=== PATIENT | male | born 1950 ===

== ENCOUNTER 2016-07-29 08:26 | Emergency (ER) | payer MEDICARE ==
[2016-07-29 08:26] VITALS: BMI 28.4
[2016-07-29 08:42] VITALS: TEMP 98.5
[2016-07-29 09:37] LABS: BASO % 0.3 % (0.0-2.0); EOS # 0.1 K/uL (0.0-0.7); EOS % 0.5 % (0.0-4.0); HEMATOCRIT 45.7 % (35.0-51.0); LYMPH # 1.3 K/uL (1.0-4.3); LYMPH % 10.8 % (20.0-40.0); MEAN CELL VOLUME 88.1 fL (80.0-94.0); MEAN CORPUSCULAR HGB CONC 32.9 g/dL (33.0-37.0); MEAN PLATELET VOLUME 8.6 fL (7.2-11.7); MONO # 0.9 K/uL (0.0-0.8); MONO % 7.5 % (0.0-10.0); NRBC % 0.3 % (0.0-2.0); RED CELL DISTRIBUTION WIDTH 13.4 % (11.5-14.5); WHITE BLOOD COUNT 12.5 K/uL (4.8-10.8)
[2016-07-29 09:45] LABS: CHLORIDE 98 mmol/L (98-107); SODIUM 137 mmol/L (132-148)
[2016-07-29 09:47] LABS: GFR AFRICAN-AMERICAN > 60
[2016-07-29 09:48] LABS: ALB/GLOB RATIO 1.2 (1.0-2.1); ALKALINE PHOSPHATASE 49 U/L (38-126); ALT/SGPT 18 U/L (21-72); AST/SGOT 23 U/L (17-59); BILIRUBIN,TOTAL 0.7 mg/dL (0.2-1.3); BLOOD UREA NITROGEN 18 mg/dL (9-20); CARBON DIOXIDE 24 mmol/L (22-30); GLUCOSE,RANDOM 193 mg/dL (75-110); TOTAL PROTEIN 7.5 g/dL (6.3-8.3)
[2016-07-29 09:49] LABS: CALCIUM 8.6 mg/dl (8.6-10.4)
--- NOTE | 2016-07-29 10:01 | C.PDOC ---
History Of Present Illness 66 y/o male presents to the ED with complains of right upper chest, neck and back pain since waking up this morning after sleeping 24 hours. Pain is sharp and constant, worse with deep breaths and movement. He denies cough, fever, SOB , palpitations, falls/injuries, rashes. Time Seen by Provider: 07/29/16 09:12 Chief Complaint (Nursing): Chest Pain History Per: Patient History/Exam Limitations: no limitations Onset/Duration Of Symptoms: Hrs Current Symptoms Are (Timing): Still Present Severity: Moderate Quality: Sharp Exacerbating Factors: Movement, Deep Breathing Alleviating Factors: None Past Medical History Reviewed: Historical Data, Nursing Documentation, Vital Signs Vital Signs: Last Vital Signs Temp 98.5 F 07/29/16 08:40 Pulse 75 07/29/16 12:39 Resp 20 07/29/16 12:39 BP 161/83 H 07/29/16 12:39 Pulse Ox 93 L 07/29/16 14:40 - Medical History PMH: Anxiety, Arthritis, Back Problems, CVA, Depression, Diabetes, HTN, Hypercholesterolemia, Sleep Apnea (DOES NOT USE C PAP) - [facility] Procedures ENDO EXCISION/DEST OF LESION OR TISSUE OF STOMACH (12/28/14) Family History: States: No Known Family Hx - Social History Hx Tobacco Use: No Hx Alcohol Use: No Hx Substance Use: No - Immunization History Hx Tetanus Toxoid Vaccination: No Hx Influenza Vaccination: No Hx Pneumococcal Vaccination: No Review Of Systems Except As Marked, All Systems Reviewed And Found Negative. Constitutional: Negative for: Fever Cardiovascular: Positive for: Chest Pain. Negative for: Palpitations Respiratory: Negative for: Cough, Shortness of Breath Gastrointestinal: Negative for: Nausea, Vomiting, Abdominal Pain, Diarrhea Musculoskeletal: Positive for: Back Pain, Other (right upper chest and neck pain ) Physical Exam - Physical Exam Appears: Well, Non-toxic, No Acute Distress Skin: Warm, Dry, No Rash Head: Atraumatic, Normacephalic Eye(s): bilateral: Normal Inspection Oral Mucosa: Moist Neck: Normal, Normal ROM, No Midline Cervical Tenderness, Paracervical Tenderness (right trapezius TTP), No Step Off Deformity, Supple Chest: Symmetrical, Tenderness (right upper chest, right supraclavicular area with mild area swelling, no crepitus/fluctuance/induration/erythema) Cardiovascular: Rhythm Regular, No Murmur Respiratory: Normal Breath Sounds (equal breath sounds bilaterally), No Accessory Muscle Use, No Rales, No Rhonchi, No Wheezing Gastrointestinal/Abdominal: Normal Exam, Bowel Sounds, Soft, No Tenderness Extremity: Bilateral: Atraumatic Neurological/Psych: Oriented x3 ED Course And Treatment - Laboratory Results Result Diagrams: 07/29/16 09:33 07/29/16 09:33 ECG: Interpreted By Me, Viewed By Me (NSR 83 bpm, normal axis, no acute ST/T wave changes) ECG Rhythm: Sinus Rhythm ECG Interpretation: Normal O2 Sat by Pulse Oximetry: 93 (on room air) Pulse Ox Interpretation: Normal Progress Note: Plan: Blood work, EKG, CT neck/chest soft tissue ordered and reviewed. Reevaluation Time: 14:30 Reassessment Condition: Improved (Patient apparently eloped prior to being discharged. CT scans did not show evidence of masses/abscesses etc. Patient reassesed prior to eloprment and was resting comfortably, in no distress.) Disposition Counseled Patient/Family Regarding: Studies Performed, Diagnosis, Need For Followup - Disposition Disposition: ELOPEMENT - ER ONLY Disposition Time: 14:30 Condition: STABLE Instructions: Chest Wall Pain (GEN) Forms: General Discharge Instructions Print Language: ALBANIAN - POA Present On Arrival: None - Clinical Impression Clinical Impression: Chest wall pain, Muscle spasm - Scribe Statement The provider has reviewed the documentation as recorded by the Kimmie France Provider Attestation: All medical record entries made by the Johnibbettie were at my direction and personally dictated by me. I have reviewed the chart and agree that the record accurately reflects my personal performance of the history, physical exam, medical decision making, and the department course for this patient. I have also personally directed, reviewed, and agree with the discharge instructions and disposition.
--- NOTE | 2016-07-29 11:18 | RAD ---
HISTORY: RIGHT SIDED CHEST PAIN, RIGHT NECK/SUPRACLAVICULAR COMPARISON: Chest x-ray performed 12/20/14 TECHNIQUE: Chest, one view. FINDINGS: Examination limited by habitus and hypoinflation. LUNGS: No focal consolidation. Please note that chest x-ray has limited sensitivity for the detection of pulmonary masses. PLEURA: No significant pleural effusion identified. No definite pneumothorax . CARDIOVASCULAR: Cardiomegaly. Mild atherosclerotic calcifications of the aorta. OSSEOUS STRUCTURES: No acute osseous abnormality identified. Acromioclavicular arthropathy. VISUALIZED UPPER ABDOMEN: Mild elevation of the right hemidiaphragm. OTHER FINDINGS: None. IMPRESSION: No focal consolidation, significant pleural effusion, or definite pneumothorax identified.
[2016-07-29] MEDS ORDERED: Iodixanol 320 MG/ML 100 ML BOTTLE IV ONE (11:38)
[2016-07-29 12:40] VITALS: BP 161/83; PULSE 75; RESP 20
--- NOTE | 2016-07-29 12:42 | CT ---
CT chest with IV contrast Indication: Right supraclavicular mass? Technique: Contiguous axial images were obtained through the chest with intravenous contrast enhancement. Sagittal and coronal reconstructions were generated and reviewed. This CT exam was performed using 1 or more of the falling dose reduction techniques: Automated exposure control, adjustment of the MAA and/or kV according to patient size, and/or use of iterative reconstruction technique IV Contrast: 30 cc Visipaque 320 Radiation dose (DLP): 961.69 MGy-cm. Comparison: Bariatric chest CT performed 11/08/14 Findings: Visualized portions of the inferior thyroid gland appear unremarkable. The mediastinal and hilar vascular structures appear within normal limits. The heart appears within normal limits of size. Dense coronary artery calcifications. Scattered atherosclerotic calcifications. No large central or segmental pulmonary embolus evident. No focal consolidation. No pleural effusion. No pneumothorax. 9 mm noncalcified nodule within the anterior segment of the right upper lobe, stable since 11/08/14. Tiny calcified granuloma within the right hilar region. Small hiatal hernia/distal esophageal wall thickening. Limited visualization of the upper abdomen reveals gastric lap band. Hypoattenuation of the liver compatible with hepatic steatosis. Exophytic 3 9 cm right upper pole renal lesion measures approximately 16 Hounsfield units, slightly higher than expected for a simple cyst. Mildly nodular appearance of the left adrenal gland. Punctate splenic calcification, likely granuloma. Degenerative changes of the spine. Impression: 9 mm noncalcified nodule within the right upper lobe, stable since 11/08/14. Small hiatal hernia/distal esophageal wall thickening. Gastric lap band. Hepatic steatosis. Re-identified exophytic 3.9 cm right upper pole renal lesion, measures slightly higher than expected for simple cyst. This may be further assessed with renal ultrasound if indicated. Mildly nodular appearance of the left adrenal gland. Evidence of prior granulomatous infection. Please note that indication for the study is right supraclavicular mass, however please note that this region is incompletely imaged on the CT of the chest. Please refer to CT neck soft tissue with contrast performed concurrently for more adequate evaluation.
--- NOTE | 2016-07-29 14:03 | CT ---
CT scan of the neck with contrast dated 07/29/2016. Right neck/upper chest mass ? . Contiguous axial images of the neck were obtained from the level of the skull-base to the superior mediastinum in following intravenous injection of approximately 70 cc of Visipaque 320 contrast material. . Coronal and sagittal reformats or also generated. No prior study available for comparison Radiation Dose - DLP: 485.16 mGy-cm This CT exam was performed using one or more of the following dose reduction techniques: Automated exposure control, adjustment of the mA and/or kV according to patient size, and/or use of iterative reconstruction technique. . Findings: The current study reveals no definitive large focal masses or collections seen in the right aspect of the neck or supraclavicular region. There are multiple small nonspecific bilateral cervical lymph nodes seen within the jugulodigastric, posterior jugular chain, submandibular and submental regions however none of these lymph nodes appear pathologically enlarged. There are a few small lymph nodes also seen in the supraclavicular regions. The largest on the right side measuring approximately 11.2 mm best seen on axial image number 48. The submandibular and parotid glands unremarkable without mass collection or abnormal calcification. No evidence of a calcifications seen along the distributions of the parotid or submandibular ducts. Atherosclerotic plaque noted within the distal common carotid arteries and carotid bifurcations mom right greater than right greater than left. Recommend followup carotid ultrasound. Atherosclerotic plaque also noted along the cavernous carotid arteries. Crossing streak and beam hardening artifact arising from the dense clavicle and shoulder girdles. There is mild asymmetry of the vallecula left-side of which contains soft tissue that may represent residual and or retained secretion as well as some encroachment of lingual tonsil. There is also asymmetry of the pyriform sinuses left-side of which is smaller than the right. This could be due to residual and or retained secretion. The possibility of a mucosal lesion cannot be excluded. Minor asymmetry of the true vocal cords. The direct visualization of the vallecular and pyriform sinus as well as true vocal cord regions may be prudent. Lung apices are clear. Multilevel degenerative spondylosis of the thoracic spine. Impression: No large cervical masses or collections. . There are multiple small nonspecific bilateral cervical lymph nodes the largest on the right supraclavicula region measuring approximately 11 mm. There is asymmetry of the left-side of the vallecular and left pyriform sinus could be due to residual and or retained secretion however mucosal and or submucosal lesion cannot be excluded. Direct visualization may be prudent. Atherosclerotic plaque changes both carotid arteries right greater than left. Follow-up of carotid Doppler recommended. See above discussion for additional findings details and recommendations. Findings discussed with Dr. Maria at 2 p.m. with written down and read back verification
[2016-07-29 14:40] VITALS: O2SAT 93
--- NOTE | 2016-07-31 19:10 | CARD ---
APPROVED REPORT EKG Measurement Heart [id number] <Conclusion> Normal sinus rhythm Possible Left atrial enlargement Borderline ECG
== END 2016-07-29 15:11 | disposition left against medical advice (07) ==
LOC: C.ER 08:26
DX: R07.89 Other chest pain (principal); M62.838 Other muscle spasm
CPT/HCPCS: 70491; 71010; 71260; 80053; 82550; 82553; 82948; 84484; 85025; 85610; 85730; 93005; 99285; Q9967

== ENCOUNTER 2017-07-01 08:42 | Emergency (ER) | payer MEDICARE ==
[2017-07-01 08:42] VITALS: BMI 28.4
--- NOTE | 2017-07-01 09:09 | C.PDOC ---
History Of Present Illness 66 y/o male with a past medical history of kidney stones, hypertension, and diabetes, presents to the ED complaining of worsening rectal pain radiating to his left testicle and left flank. Patient is also complaining of urinary frequency. Initially the pain began 1 year ago and his PMD referred him to a specialist who evaluated his prostate and patient was told everything was okay. Pain worsens when he is sitting for a prolonged time. He uses an over-the- counter patch that provides minimal relief. Patient denies any new sexual partners, penile lesions, or penile discharge. No hematuria, urinary urgency, or incontinence of urine/stool. PMD: Rafael Estes Time Seen by Provider: 07/01/17 09:45 Chief Complaint (Nursing): Male Genitourinary History Per: Patient History/Exam Limitations: no limitations Onset/Duration Of Symptoms: Waxing/Waning Current Symptoms Are (Timing): Still Present Past Medical History Reviewed: Historical Data, Nursing Documentation, Vital Signs Vital Signs: Last Vital Signs Temp 98.3 F 07/01/17 11:44 Pulse 62 07/01/17 11:44 Resp 20 07/01/17 11:44 BP 191/101 H 07/01/17 11:44 Pulse Ox 97 07/01/17 11:44 - Medical History PMH: Anxiety, Arthritis, Back Problems, CVA, Depression, Diabetes, HTN, Hypercholesterolemia, Sleep Apnea (DOES NOT USE C PAP) Denies: Chronic Kidney Disease - [facility] Procedures ENDO EXCISION/DEST OF LESION OR TISSUE OF STOMACH (12/28/14) Family History: States: Unknown Family Hx - Social History Hx Tobacco Use: No Hx Alcohol Use: No Hx Substance Use: No - Immunization History Hx Tetanus Toxoid Vaccination: No Hx Influenza Vaccination: No Hx Pneumococcal Vaccination: No Review Of Systems Except As Marked, All Systems Reviewed And Found Negative. Constitutional: Negative for: Fever, Chills Gastrointestinal: Positive for: Rectal Pain, Other (Left flank pain). Negative for: Diarrhea, Constipation Genitourinary: Positive for: Frequency, Other (testicular pain). Negative for: Incontinence (stool or urinary), Hematuria, Penile Discharge, Rash Physical Exam - Physical Exam Appears: Non-toxic, No Acute Distress Skin: Normal Color, Warm, Dry Head: Atraumatic, Normacephalic Eye(s): bilateral: Normal Inspection, PERRL, EOMI Neck: Normal ROM, Supple Chest: Symmetrical Cardiovascular: Rhythm Regular Respiratory: Normal Breath Sounds, No Accessory Muscle Use Gastrointestinal/Abdominal: Soft, No Tenderness, No Distention, No Other (flank tenderness) Rectal: Normal Exam, Heme Negative, No Hemorrhoids, No Tenderness, Other (Brown Stool) Back: Normal Inspection, No CVA Tenderness, No Vertebral Tenderness Male Genital: Other (Left scrotal tenderness, no inguinal adenopathy) Extremity: Bilateral: Atraumatic, Normal Color And Temperature, Normal ROM Neurological/Psych: Oriented x3, Normal Speech ED Course And Treatment O2 Sat by Pulse Oximetry: 96 (RA) Pulse Ox Interpretation: Normal - CT Scan/US abdomen/pelvis CT Other Rad Studies (CT/US): Read By Radiologist, Radiology Report Reviewed CT/US Interpretation: FINDINGS: There is limited evaluation of the solid organs without the administration of IV contrast. LOWER THORAX: Mild bibasilar atelectasis. No visible pleural effusion or pneumothorax. Tiny calcified granuloma, right middle lobe. Partially imaged dense coronary artery calcifications. LIVER: Unremarkable unenhanced appearance. GALLBLADDER AND BILE DUCTS: Unremarkable unenhanced appearance. PANCREAS: Atrophy. SPLEEN: Punctate splenic calcification, likely granuloma. ADRENALS: Mild nodular hypertrophy of the left adrenal gland. The right adrenal gland appears unremarkable. KIDNEYS AND URETERS: No hydronephrosis or obstructing renal calculus. Re-identified exophytic 2.0 x 1.9 cm right upper pole renal lesion, measures approximately 29 Hounsfield units, indeterminate. BLADDER: Under distention of the urinary bladder limits evaluation. REPRODUCTIVE: Unremarkable. APPENDIX: The appendix appears within normal limits of caliber. No secondary signs of acute appendicitis. BOWEL: Gastric lap band. The stomach is nondistended. Lack of oral contrast limits evaluation for bowel pathology. The bowel loops appear within normal limits of caliber without evidence of intestinal obstruction. Diverticulosis without CT evidence of acute diverticulitis. PERITONEUM: No significant free fluid. No definite free air. LYMPH NODES: No bulky lymphadenopathy identified. VASCULATURE: Dense atherosclerotic calcifications of the aorta and branches. No aortic aneurysm. BONES: Degenerative changes of the spine. OTHER FINDINGS: None. IMPRESSION: Re-identified exophytic 2.0 x 1.9 cm right upper pole renal lesion, measures approximately 29 Hounsfield units, indeterminate. Recommend further evaluation with renal ultrasound. Diverticulosis without CT evidence of acute diverticulitis. Gastric lap band. Additional findings as above. Medical Decision Making Medical Decision Making: Time: 9:52 Initial Plan: * Urinalysis * CT Abd/Pelvis Urine is clear. CT findings discussed with patient, all questions answered. Patient is medically stable and will be discharged home with Motrin. Disposition Counseled Patient/Family Regarding: Studies Performed, Need For Followup, Rx Given - Disposition Referrals: Jaron Aguilar Jr., MD [Staff Provider] - Disposition: HOME/ ROUTINE Disposition Time: 11:29 Condition: STABLE Prescriptions: Ibuprofen [Motrin] 1 tab PO TID PRN #30 tab PRN Reason: Pain Instructions: Low Back Pain (DC) Forms: [employer] ([place]) - POA Present On Arrival: None - Clinical Impression Clinical Impression: Low back pain - Scribe Statement The provider has reviewed the documentation as recorded by the Scribe (Vivien Solis) Provider Attestation: All medical record entries made by the Scribe were at my direction and personally dictated by me. I have reviewed the chart and agree that the record accurately reflects my personal performance of the history, physical exam, medical decision making, and the department course for this patient. I have also personally directed, reviewed, and agree with the discharge instructions and disposition.
[2017-07-01 10:11] LABS: SQUAMOUS EPITHIAL 1 /hpf (0-5); URINE BILIRUBIN NEGATIVE (NEGATIVE); URINE BLOOD NEGATIVE (NEGATIVE); URINE CLARITY Clear (Clear); URINE COLOR Yellow (YELLOW); URINE GLUCOSE (UA) NORMAL (Normal); URINE LEUKOCYTE ESTERASE NEG Leu/uL (Negative); URINE PROTEIN 3+ mg/dL (NEGATIVE); URINE UROBILINOGEN NORMAL mg/dL (0.2-1.0)
--- NOTE | 2017-07-01 11:25 | CT ---
PROCEDURE: CT Abdomen and Pelvis without Oral or IV contrast. HISTORY: abd pain COMPARISON: CT abdomen and pelvis with contrast 04/23/16 TECHNIQUE: Contiguous axial images of the abdomen and pelvis. No oral or IV contrast administered. Coronal and Sagittal reformats generated and reviewed. Radiation dose: Total exam DLP = 1197.83 mGy-cm. This CT exam was performed using one or more of the following dose reduction techniques: Automated exposure control, adjustment of the mA and/or kV according to patient size, and/or use of iterative reconstruction technique. FINDINGS: There is limited evaluation of the solid organs without the administration of IV contrast. LOWER THORAX: Mild bibasilar atelectasis. No visible pleural effusion or pneumothorax. Tiny calcified granuloma, right middle lobe. Partially imaged dense coronary artery calcifications. LIVER: Unremarkable unenhanced appearance. GALLBLADDER AND BILE DUCTS: Unremarkable unenhanced appearance. PANCREAS: Atrophy. SPLEEN: Punctate splenic calcification, likely granuloma. ADRENALS: Mild nodular hypertrophy of the left adrenal gland. The right adrenal gland appears unremarkable. KIDNEYS AND URETERS: No hydronephrosis or obstructing renal calculus. Re-identified exophytic 2.0 x 1.9 cm right upper pole renal lesion, measures approximately 29 Hounsfield units, indeterminate. BLADDER: Under distention of the urinary bladder limits evaluation. REPRODUCTIVE: Unremarkable. APPENDIX: The appendix appears within normal limits of caliber. No secondary signs of acute appendicitis. BOWEL: Gastric lap band. The stomach is nondistended. Lack of oral contrast limits evaluation for bowel pathology. The bowel loops appear within normal limits of caliber without evidence of intestinal obstruction. Diverticulosis without CT evidence of acute diverticulitis. PERITONEUM: No significant free fluid. No definite free air. LYMPH NODES: No bulky lymphadenopathy identified. VASCULATURE: Dense atherosclerotic calcifications of the aorta and branches. No aortic aneurysm. BONES: Degenerative changes of the spine. OTHER FINDINGS: None. IMPRESSION: Re-identified exophytic 2.0 x 1.9 cm right upper pole renal lesion, measures approximately 29 Hounsfield units, indeterminate. Recommend further evaluation with renal ultrasound. Diverticulosis without CT evidence of acute diverticulitis. Gastric lap band. Additional findings as above.
[2017-07-01 11:44] VITALS: PULSE 62; RESP 20; TEMP 98.3
[2017-07-01] MEDS ORDERED: Sacubitril/Valsartan 24-26mg Tab PO STA (11:44)
[2017-07-01 12:02] VITALS: O2SAT 96
[2017-07-01 12:04] VITALS: BP 170/85
== END 2017-07-01 12:03 | disposition home or self-care (01) ==
LOC: C.ER 08:42
DX: M54.5 Low back pain (principal); E11.9 Type 2 diabetes mellitus without complications; I10 Essential (primary) hypertension; E78.00 Pure hypercholesterolemia, unspecified

== ENCOUNTER 2017-08-09 13:43 | Emergency (ER) | payer MEDICARE ==
[2017-08-09 13:43] VITALS: BMI 28.4
[2017-08-09 13:52] VITALS: TEMP 99.1
[2017-08-09 14:43] VITALS: BP 129/71; PULSE 71; RESP 21; O2SAT 97
[2017-08-09 14:44] LABS: BASO # 0.1 K/uL (0.0-0.2); BASO % 0.7 % (0.0-2.0); EOS # 0.1 K/uL (0.0-0.7); EOS % 1.6 % (0.0-4.0); HEMOGLOBIN 14.3 g/dL (12.0-18.0); LYMPH # 1.6 K/uL (1.0-4.3); LYMPH % 19.9 % (20.0-40.0); MEAN CELL VOLUME 89.3 fL (80.0-94.0); MEAN CORPUSCULAR HEMOGLOBIN 30.8 pg (27.0-31.0); MEAN CORPUSCULAR HGB CONC 34.5 g/dL (33.0-37.0); MEAN PLATELET VOLUME 8.5 fL (7.2-11.7); MONO # 0.6 K/uL (0.0-0.8); MONO % 7.9 % (0.0-10.0); NEUT # 5.7 K/uL (1.8-7.0); NEUT % 69.9 % (50.0-75.0); RBC 4.64 Mil/uL (4.40-5.90); RED CELL DISTRIBUTION WIDTH 14.1 % (11.5-14.5); WHITE BLOOD COUNT 8.1 K/uL (4.8-10.8)
[2017-08-09 14:52] LABS: INR 0.9; PROTHROMBIN TIME 10.6 SECONDS (9.7-12.2)
[2017-08-09 15:00] LABS: ALBUMIN 3.6 g/dL (3.5-5.0); ALT/SGPT 8 U/L (21-72); AST/SGOT 26 U/L (17-59); BLOOD UREA NITROGEN 24 mg/dL (9-20); GFR AFRICAN-AMERICAN > 60; GFR NON-AFRICAN AMERICAN 51
--- NOTE | 2017-08-09 15:08 | RAD ---
PROCEDURE: CHEST RADIOGRAPH, 1 VIEW HISTORY: Left sided chest pain COMPARISON: Comparison is made to 07/29/2016 FINDINGS: LUNGS: No evidence of new infiltrate or consolidation in the lungs PLEURA: No pneumothorax or pleural fluid seen. CARDIOVASCULAR: Normal. OSSEOUS STRUCTURES: No significant abnormalities. VISUALIZED UPPER ABDOMEN: Normal. OTHER FINDINGS: None. IMPRESSION: No active disease.
[2017-08-09 15:12] LABS: B-TYPE NATRIURETIC PEPTIDE 92.1 pg/mL (0-900)
[2017-08-09] MEDS ORDERED: Sodium Chloride 0.9% 500 ML IV ONE (15:16)
[2017-08-09] MEDS ORDERED: Iodixanol 320 MG/ML 100 ML BOTTLE IV ONE (16:22)
--- NOTE | 2017-08-09 17:43 | CT ---
PROCEDURE: CT Chest with contrast (Pulmonary Angiogram) HISTORY: Left sided chest pain, r/o PE COMPARISON: Comparison is made to previous study dated 07/29/2016 TECHNIQUE: Axial computed tomography images were obtained of the chest in the pulmonary arterial phase of enhancement. Coronal and sagittal reformatted images were created and reviewed. Intravenous contrast dose: 100 mL Visipaque 320 Radiation dose: Total exam DLP = 640.24 mGy-cm. This CT exam was performed using one or more of the following dose reduction techniques: Automated exposure control, adjustment of the mA and/or kV according to patient size, and/or use of iterative reconstruction technique. FINDINGS: PULMONARY ARTERIES: No evidence of filling defect in the pulmonary arteries to suggest acute pulmonary embolus. AORTA: No acute findings. No thoracic aortic aneurysm. LUNGS: Again seen is 7 millimeter noncalcified nodule at the right lung upper lobe. No evidence of pneumonia. PLEURAL SPACES: Unremarkable. No effusion or pneuomothorax. HEART: Unremarkable. No cardiomegaly. No significant pericardial effusion. LYMPH NODES: No lymphadenopathy. BONES, CHEST WALL: Unremarkable. No fracture or destructive lesion OTHER FINDINGS: There is a [id number] diffuse esophageal mucosal thickening noted. The patient is status post gastric band. IMPRESSION: No evidence of pulmonary embolus. Stable 7 millimeter noncalcified nodule at the right lung upper lobe. Diffuse esophageal mucosal thickening noted. Correlate clinically for esophagitis.
--- NOTE | 2017-08-09 18:00 | C.PDOC ---
Time Seen by Provider: 08/09/17 13:59 Chief Complaint (Nursing): Chest Pain History Per: Patient, Family, [employer] History/Exam Limitations: language barrier Onset/Duration Of Symptoms: Days (2) Current Symptoms Are (Timing): Still Present Severity: Moderate Quality: "Pain" Associated Symptoms: denies: Nausea, Dyspnea, Diaphoresis, Syncope Modifying Factors: Other Indicated Below Exacerbating Factors: Movement, Other (Coughing) Nitro Therapy Administered: 1, Per ED, Partial Relief Additional History Per: Prior Records Past Medical History Reviewed: Historical Data, Nursing Documentation, Vital Signs Vital Signs: Last Vital Signs Temp 99.1 F 08/09/17 13:49 Pulse 71 08/09/17 14:30 Resp 21 08/09/17 14:30 BP 129/71 08/09/17 14:30 Pulse Ox 97 08/09/17 18:01 - Medical History PMH: Anxiety, Arthritis, Back Problems, CVA, Depression, Diabetes, HTN, Hypercholesterolemia, Sleep Apnea (DOES NOT USE C PAP) Surgical History: No Surg Hx - [facility] Procedures ENDO EXCISION/DEST OF LESION OR TISSUE OF STOMACH (12/28/14) Family History: States: Unknown Family Hx - Social History Hx Tobacco Use: No Hx Alcohol Use: No Hx Substance Use: No - Immunization History Hx Tetanus Toxoid Vaccination: No Hx Influenza Vaccination: Yes Hx Pneumococcal Vaccination: No Review Of Systems Except As Marked, All Systems Reviewed And Found Negative. Constitutional: Negative for: Fever Cardiovascular: Positive for: Chest Pain Respiratory: Negative for: Shortness of Breath, Hemoptysis Gastrointestinal: Negative for: Vomiting, Abdominal Pain Musculoskeletal: Negative for: Neck Pain, Back Pain, Leg Pain Skin: Negative for: Rash Neurological: Negative for: Weakness, Numbness Physical Exam - Physical Exam Appears: Non-toxic, No Acute Distress Skin: Normal Color, Warm, Dry, No Rash Head: Atraumatic, Normacephalic Eye(s): bilateral: Normal Inspection, PERRL, EOMI Neck: Normal ROM, Supple Chest: Symmetrical, No Deformity, Tenderness (mild chest wall), No Ecchymosis, No Subcutaneous Emphysema Cardiovascular: Rhythm Regular Respiratory: Normal Breath Sounds, No Accessory Muscle Use Gastrointestinal/Abdominal: Soft, No Tenderness Back: No CVA Tenderness Extremity: Normal ROM, No Pedal Edema, No Calf Tenderness Neurological/Psych: Oriented x3, Normal Motor, Normal Sensation ED Course And Treatment - Laboratory Results Result Diagrams: 08/09/17 14:10 08/09/17 14:49 Lab Interpretation: No Acute Changes ECG: Interpreted By Me, Viewed By Me ECG Rhythm: Sinus Rhythm ECG Interpretation: No Acute Changes Rate From EC O2 Sat by Pulse Oximetry: 97 Pulse Ox Interpretation: Normal - Radiology CXR: Viewed By Me, Read By Radiologist CXR Interpretation: Yes: No Acute Disease - CT Scan/US CTA of chest Other Rad Studies (CT/US): Read By Radiologist, Radiology Report Reviewed CT/US Interpretation: IMPRESSION: No evidence of pulmonary embolus. Stable 7 millimeter noncalcified nodule at the right lung upper lobe. Diffuse esophageal mucosal thickening noted. Correlate clinically for esophagitis. Progress Note: I want to keep pt for observation for further evaluatoin and treatment, including rule out AR, however pt is not willing to stay. He wants to leave immediately against medical advice even after I explained to him that he may still be suffering from a heart attack and that he may if he goes home. Reassessment Condition: Improved Against Medical Advice - AMA Patient Left Against Medical Advice: The patient declines admission to the hospital and wishes to leave the Emergency Department. This action is against my medical advice. This decision was made with informed refusal. The patient was told that admission to the hospital is necessary. Explanation of the reasons why were discussed. The risks of leaving were explained to the patient and include, but are not limited to, worsening of known or currently unknown conditions, permanent disability and from undiagnosed or untreated conditions. The patient has the capacity to make this informed decision and understands my explanation of the current medical problem and risks of leaving. The patient voluntarily accepts these risks and signed an AMA form documenting our conversation. The patient was given the opportunity to ask questions and reconsider. The patient was encouraged to return to the Emergency Department at any time for further care. Progress - Interventions Interventions:: Observation - Medications Administered Oral: Aspirin (taken by pt today [employer]) - Data Reviewed Data Reviewed: Lab, Diagnostic imaging, EKG, Old records - Patient Status Patient status: Mostly improved - Continuity of Care Discussed patient case with:: Patient, Family-HIPPA compliant, ED Nurse Disposition Counseled Patient/Family Regarding: Studies Performed, Diagnosis, Need For Followup, Rx Given - Disposition Referrals: Rafael Estes MD [Staff Provider] - Disposition: AGAINST MEDICAL ADVICE Disposition Time: 18:08 Condition: GUARDED Additional Instructions: Continue your Aspirin daily. Follow up with your doctor as soon as possible for further evaluation and treatment. Return to the ER if you change your mind, develop worsening of symptoms or if you have any other concerns. Prescriptions: Pantoprazole Sodium [Protonix] 40 mg PO DAILY #14 ect Instructions: Leaving Against Medical Advice, Chest Pain (DC) Forms: [employer] (Yoruba) Print Language: ROMANIAN - Clinical Impression Clinical Impression: Chest pain, Left against medical advice
== END 2017-08-09 18:18 | disposition left against medical advice (07) ==
LOC: C.ER 13:43
DX: R07.9 Chest pain, unspecified (principal); I10 Essential (primary) hypertension; E11.9 Type 2 diabetes mellitus without complications; E78.00 Pure hypercholesterolemia, unspecified; Z86.73 Personal history of transient ischemic attack (TIA), and cerebral infarction without residual deficits
CPT/HCPCS: 71045; 71275; 80053; 83880; 84484; 85025; 85378; 85610; 85730; 99284; Q9967